=== PATIENT | male | born 1940 | race Caucasian/White ===

== ENCOUNTER 2023-12-01 11:47 | Day surgery (SDC) | payer OTHER ==
[~2023-12-01] VITALS: Ht 190.5 cm; Wt 136.1 kg
[2023-12-01 15:35] VITALS: BP 106/61
== END 2023-12-01 15:37 | disposition home or self-care (01) ==
LOC: ORSCSDS 11:47
PROC: 0DJD8ZZ Inspection of Lower Intestinal Tract, Via Natural or Artificial Opening Endoscopic (ICD-10-PCS; principal; 2023-12-01)
DX: Z86.010 Personal history of colon polyps (principal); K64.8 Other hemorrhoids; K57.30 Diverticulosis of large intestine without perforation or abscess without bleeding; Z79.82 Long term (current) use of aspirin; Z79.899 Other long term (current) drug therapy